=== PATIENT | male | born 1990 | race Caucasian/White ===

== ENCOUNTER → 2016-07-20 | Outpatient (CLI) | payer OTHER ==
--- NOTE | 2016-07-21 08:20 | DI ---
Indication: ITS.REASON: DIAGNOSTIC TESTING LUMBAR SPINE 2-3 VIEWS: Comparison: None Technique: AP lateral and cone-down lateral views Findings: Patient showed normal vertebral body heights, alignment and disc spaces. Normal bowel gas pattern seems unremarkable. Impression: Unremarkable three-view lumbar spine. .
--- NOTE | 2016-07-21 09:16 | DI ---
Indication: ITS.REASON: DIAGNOSTIC TESTING KNEE LEFT 2 VIEW Comparison: None Findings: There is no acute fracture, dislocation or malalignment identified. Impression: No acute osseous abnormality. .
== END ==
LOC: IMA 17:14
DX: Z02.9 Encounter for administrative examinations, unspecified (principal)